=== PATIENT | female | born 1945 | race Caucasian/White ===

== ENCOUNTER → 2020-03-27 | Outpatient (CLI) | payer OTHER | END | disposition home or self-care (01) | LOC: RAH 15:01 | PROVIDERS: ATTEND Nurse Practitioner Adult Health | DX: R10.31 Right lower quadrant pain (principal); Z90.710 Acquired absence of both cervix and uterus | CPT/HCPCS: 76856 ==

== ENCOUNTER → 2023-02-22 | Outpatient (CLI) | payer OTHER | END | disposition home or self-care (01) | LOC: OIH 15:26 | PROVIDERS: ATTEND Nurse Practitioner Adult Health | DX: Z13.6 Encounter for screening for cardiovascular disorders (principal) | CPT/HCPCS: 75571 ==

== ENCOUNTER → 2023-03-14 | Outpatient (CLI) | payer OTHER ==
[~2023-03-14] MED LIST: REGADENOSON 0.4 MG/5 ML PF SYG IVP ONE
== END | disposition home or self-care (01) ==
LOC: SHCH 08:02
PROVIDERS: ATTEND Internal Medicine Cardiovascular Disease
DX: I25.10 Atherosclerotic heart disease of native coronary artery without angina pectoris (principal)
CPT/HCPCS: 78452; 96374; 93017; J2785; A9500 ×2

== ENCOUNTER → 2024-02-24 | Outpatient (CLI) | payer OTHER ==
--- NOTE | 2024-02-24 12:12 | HMCIMG ---
Exam: CERVICAL SPINE 2 VIEWS REASON: Ankylosing spondylitis of cervical region TECHNIQUE: 3 views were obtained. FINDINGS: There are normal appearing vertebral bodies. There is been anterior interbody fusion at C5-6 and C6-7. Hardware appears intact. Remaining interspaces appear unremarkable. There are no visible fractures. There is some calcification in the left carotid bifurcation. IMPRESSION: 1. Postop changes, the cervical spine appears otherwise unremarkable. 2. Moderate to calcification in the left carotid bifurcation.
--- NOTE | 2024-02-24 12:13 | HMCIMG ---
THORACIC SPINE 2VWS REASON: Ankylosing spondylitis lumbar region COMPARISON: None. TECHNIQUE: 2 images were obtained. FINDINGS: There are normal appearing vertebral bodies. Interspace heights are well preserved. There are no visible fractures. Soft tissues appear unremarkable. IMPRESSION: 1. Normal views of the thoracic spine.
== END | disposition home or self-care (01) ==
LOC: RAH 10:49
PROVIDERS: ATTEND Nurse Practitioner Adult Health
DX: M45.2 Ankylosing spondylitis of cervical region (principal); M45.6 Ankylosing spondylitis lumbar region; M43.22 Fusion of spine, cervical region
CPT/HCPCS: 72040; 72070